=== PATIENT | female | born 2000 | race Caucasian/White ===

== ENCOUNTER 2019-08-18 09:56 | Emergency (ER) | payer BC, MEDICAID ==
[~2019-08-18] VITALS: Ht 121.9 cm; Wt 33.6 kg
--- NOTE | 2019-08-18 12:21 | NUR ---
Gave pt's mother RX and d/c instructions, verbalized understanding.
== END 2019-08-18 12:30 | disposition home or self-care (01) ==
LOC: ER 09:56
DX: J20.9 Acute bronchitis, unspecified (principal); E11.9 Type 2 diabetes mellitus without complications; Z88.1 Allergy status to other antibiotic agents; Z88.8 Allergy status to other drugs, medicaments and biological substances; Z91.040 Latex allergy status; Z91.048 Other nonmedicinal substance allergy status; Z79.2 Long term (current) use of antibiotics; Z79.899 Other long term (current) drug therapy
CPT/HCPCS: 71045; 87400; A4663

== ENCOUNTER 2019-08-19 17:58 | Emergency (ER) | payer BC, MEDICAID ==
[~2019-08-19] VITALS: Ht 121.9 cm; Wt 33.6 kg
[~2019-08-19 17:58] MED LIST: ALBU2.5V38 IH; CORN STARCH; DIAZ2.5K RC; ERYT3.5O24 EACHEYE; FLUT9.9S NS; LEVE100S GT; MONT10TA22 PO; OXCA300O5 GT; POLY17PO4 GT; RANI15SY GT; SIME80TA15 PO; URSO300C12 PO; [UNRECOGNIZED DRUG - CODE] IR; [UNRECOGNIZED DRUG - CODE] PO; [UNRECOGNIZED DRUG - OTHER]; flovent
--- NOTE | 2019-08-19 18:09 | NUR ---
Dr. Rizzo here to see pt for MSE.
[2019-08-19] MEDS ORDERED: prednisoLONE 15 MG/5 ML UDC ONE (18:58)
[2019-08-19] MEDS ORDERED: predniSONE 5 MG/5 ML LIQ UDC GT SCH (19:00)
[2019-08-19] MEDS ORDERED: prednisoLONE 15 MG/5 ML UDC PO ONE (19:00)
--- NOTE | 2019-08-19 19:45 | NUR ---
Patient discharged to home in stable conditon. Written and verbal after care instructions given. Patient mother verbalizes understanding of instructions.
== END 2019-08-19 19:45 | disposition home or self-care (01) ==
LOC: ER 17:58
DX: J20.9 Acute bronchitis, unspecified (principal); Z88.1 Allergy status to other antibiotic agents; Z88.6 Allergy status to analgesic agent; Z91.040 Latex allergy status; Z88.8 Allergy status to other drugs, medicaments and biological substances; Z79.899 Other long term (current) drug therapy
CPT/HCPCS: 99283; J7510; A4663

== ENCOUNTER 2025-05-27 10:09 | Emergency (ER) | payer BC, MEDICAID, OTHER ==
[~2025-05-27] VITALS: Ht 124.5 cm; Wt 33.6 kg
[~2025-05-27 10:09] MED LIST changes: -ERYT3.5O24 EACHEYE; +FLUT16SP16 NS; -FLUT9.9S NS; +MONT-48 PO; -MONT10TA22 PO; -RANI15SY GT; +[UNRECOGNIZED DRUG - CODE] IR; -[UNRECOGNIZED DRUG - CODE] IR
[2025-05-27 10:57] LABS: PLATELET COUNT (AUTO) 101 K/uL (179-408); RED BLOOD CELL COUNT(AUTO) 4.48 MIL/uL (3.63-4.92); RED CELL DISTRIBUTION WIDTH 14.0 % (12.3-17.7); WHITE BLOOD COUNT (AUTO) 7.5 K/uL (3.8-11.8)
[2025-05-27 11:05] LABS: CREATININE 0.8 mg/dL (0.6-1.3); SODIUM SERUM 138.0 mmol/L (136-145); UREA NITROGEN, BLOOD 12.0 mg/dL (7-18)
[2025-05-27 11:26] LABS: *BILIRUBIN,URIN NEGATIVE (NEGATIVE); *BLOOD, URINE NEGATIVE (NEGATIVE); *CLARITY,URINE CLEAR (CLEAR); *COLOR,URINE YELLOW (YELLOW); *KETONES,URINE NEGATIVE (NEGATIVE); *PROTEIN,URINE 1+ (NEGATIVE); *UROBILINOGEN,URINE 2.0 E.U./dl (NORMAL); LEUKOCYTE ESTERASE ,URINE NEGATIVE (NEGATIVE); NITRITE, URINE NEGATIVE (NEGATIVE); UGLUCOSE NEGATIVE (NEGATIVE)
[2025-05-27 11:43] LABS: SQUAMOUS EPITHELIAL CELL,UR FEW /HPF (NONE SEEN)
[2025-05-27] MEDS: IV NORMAL SALINE 1000 ML BAG IV ONE (12:05)
[2025-05-27 12:42] VITALS: BP 129/86
[2025-05-27 13:20] VITALS: BP 120/77; TEMP 98.1; O2SAT 98
[2025-05-27 14:03] LABS: BAND % (MANUAL) 4 % (0-10); LYMPHOCYTES % (MANUAL) 9 % (20-40); MONOCYTES % (MANUAL) 18 % (2-10); NEUTROPHILS % (MANUAL) 69 % (42-75); PLATELET ESTIMATE DECREASED
== END 2025-05-27 13:21 | disposition home or self-care (01) ==
LOC: ER 10:09
DX: G40.909 Epilepsy, unspecified, not intractable, without status epilepticus (principal); A41.9 Sepsis, unspecified organism; G80.0 Spastic quadriplegic cerebral palsy; J84.9 Interstitial pulmonary disease, unspecified; Q05.9 Spina bifida, unspecified; Z79.51 Long term (current) use of inhaled steroids; Z87.01 Personal history of pneumonia (recurrent); Z88.0 Allergy status to penicillin; Z88.5 Allergy status to narcotic agent; Z88.6 Allergy status to analgesic agent; Z88.7 Allergy status to serum and vaccine; Z90.49 Acquired absence of other specified parts of digestive tract; Z91.040 Latex allergy status; Z93.1 Gastrostomy status; Z20.822 Contact with and (suspected) exposure to COVID-19
CPT/HCPCS: 99285; 71045; 96361; 99406; 87426; 87804 ×2; 80048; 81001; 85007; 85027; 84145; 87040 ×2; 87086; 36415; 93005; 83605; J7040; 70030-TC; A4606; A4663; C1758

== ENCOUNTER 2025-06-06 10:48 | Emergency (ER) | payer OTHER ==
[~2025-06-06] VITALS: Ht 124.5 cm; Wt 34.0 kg
[2025-06-06 10:56] VITALS: BP 127/70
[2025-06-06 12:24] VITALS: BP 127/70; O2SAT 98
== END 2025-06-06 12:25 | disposition home or self-care (01) ==
LOC: ER 10:48
DX: S89.91XA Unspecified injury of right lower leg, initial encounter (principal); G82.50 Quadriplegia, unspecified; Q05.9 Spina bifida, unspecified; Z79.51 Long term (current) use of inhaled steroids; Z87.01 Personal history of pneumonia (recurrent); Z88.0 Allergy status to penicillin; Z88.5 Allergy status to narcotic agent; Z88.6 Allergy status to analgesic agent; Z88.7 Allergy status to serum and vaccine; Z90.49 Acquired absence of other specified parts of digestive tract; Z91.040 Latex allergy status
CPT/HCPCS: A4606; A4663